=== PATIENT | male | born 1945 | race Caucasian/White ===

== ENCOUNTER → 2017-05-15 | Day surgery (SDC) | payer MEDICARE ==
[~2017-05-15] VITALS: Ht 172.7 cm; Wt 83.9 kg
[~2017-05-15] MED LIST: 0.9% Sodium Chloride 1,000 ML IV PRN; LISI10TA PO; NITR0.4T SL; OXYB5TAB10 PO; PRAV20TA2 PO; Sodium Chloride LOK Flush 10 mL Syringe IV PRN; TURM500C3 PO; fentaNYL-PF 50 mCg/mL 2 mL Inj IVPUSH PRN
[2017-05-15 10:48] VITALS: BP 175/105; PULSE 67; RESP 12; O2SAT 98
--- NOTE | 2017-05-15 12:00 | PCM.ENDCOL ---
Colonoscopy Date of Service: May 15, 2017 Physician Meliton Draper MD Pre Procedure Diagnosis: Screening Post Procedure Dx & Findings: Polyp hemorrhoids diverticuli Procedure Colonoscopy PROCEDURE IN DETAIL: Prep adequate Withdrawal time 9 minutes After unremarkable rectal examination the Olympus video colonoscope was inserted patient's anal canal and was advanced to cecum. Landmarks were identified including the ileocecal valve and appendiceal orifice. Scope was withdrawn systematically. Visualized colonic mucosa showed healthy shiny mucosa with normal healthy-appearing vasculature. In the ileocecal valve, there was a 1 mm polyp which was removed completely using cold forceps. In the descending colon, there was a 3 mm polyp which was removed completely using cold snare. There was also a 1 mm polyp which was removed completely using cold forceps. Patient had many diverticula in the sigmoid colon. Small to large. Patient also has isolated onces all the way into the ascending colon. In the rectum retroflexion was done which showed hemorrhoids. Anal canal was inspected carefully on the way out and hemorrhoids noted. Impression Polyps 3 status post complete removal Diverticuli Hemorrhoids Recommendation Repeat colonoscopy 3 years. Diverticular diet Presedation Assessment Risks and Benefits Informed consent was obtained from the patient after all risks and benefits including but not limited to drug reaction, infection, pain, bleeding, perforation, as well as alternatives were discussed. Patient monitoring Continuous pulse oximetry, cardiac monitoring, blood pressure monitoring, IV access, and oxygen at 2L per nasal cannula. Periprocedural Fentanyl: Fentanyl 100mcg Incrementally Midazolam: Midazolam 5mg Incrementally Complications There were no periprocedural complications identified. Post Procedure Plan Post Procedure Recommendations 1. Restrict activities today. 2. Resume normal activities in the morning. 3. Resume medications. 4. Patient informed of normal post procedure side effects as bloating, drowsiness, blood streaking in the stool. 5. average risk CRCS. If colon polyps come back as: -Hyperplastic- can repeat colonoscopy in 10 years -Tubular adenoma- repeat colonoscopy in 5 years -Tubulovillous/villous adenoma- repeat colonoscopy in 3 years -If any dysplasia- return to clinic as soon as possible 6. Please don't hesitate to call me with any questions. Meliton Draper MD May 15, 2017 12:00
[2017-05-15 12:03] VITALS: BP 159/79; PULSE 62; RESP 12; O2SAT 95
[2017-05-15 12:23] VITALS: BP 120/69; PULSE 58; RESP 14; O2SAT 96
--- NOTE | 2017-05-17 18:19 | PATH ---
SURGICAL PATHOLOGY Attending Physician:Meliton Draper M.D. CASE STATUS: Signed Out PATIENT NAME: GRISELDA PHILLIPS PID: [id number] : 1945 DATE COLLECTED:05/15/2017 19:33 SPECIMEN: 1: Colon, Polyp 2: Colon, Polyp CLINICAL HISTORY: 1). ILEOCECAL VALVE POLYP X 1 2). DESCENDING COLON POLYP X 2 FINAL DIAGNOSIS: 1. Ileocecal Valve, Polyp x1, Biopsy: Tubular adenoma. 2. Descending Colon, Polyps x2, Biopsies: Tubular adenoma in 4 of 6 fragments. ICD10: D12.0 D12.4 GROSS DESCRIPTION: The specimen is received in two formalin filled containers labeled with the patient's name. 1). The specimen is labeled "ileocecal valve polyp" and consists of a 0.2 x 0.2 x 0.2 CM portion of tissue which is entirely submitted in cassette 1A. 2). The specimen is labeled "descending colon polyp and "and consists of 5 portions of tissue which aggregate to zero 3 x 0.3 x 0.2 CM. The specimen is entirely submitted in cassette 2A. 05/15/2017DC ICD-9 CODES: CPT CODES: 1: 78988 2: 47628 Electronically Signed Out Carol Ambrose MD [facility] [address], [place] [address] Technical component performed at [facility], [facility] [address], [place], [address]
== END | disposition home or self-care (01) ==
LOC: END 07:45
PROVIDERS: ATTEND Internal Medicine
DX: Z12.11 Encounter for screening for malignant neoplasm of colon (principal); D12.0 Benign neoplasm of cecum; D12.4 Benign neoplasm of descending colon; K57.30 Diverticulosis of large intestine without perforation or abscess without bleeding; K64.8 Other hemorrhoids; Z83.71 Family history of colonic polyps; I25.10 Atherosclerotic heart disease of native coronary artery without angina pectoris; I25.2 Old myocardial infarction; Z95.5 Presence of coronary angioplasty implant and graft; K21.9 Gastro-esophageal reflux disease without esophagitis; I10 Essential (primary) hypertension; E78.5 Hyperlipidemia, unspecified
CPT/HCPCS: 45380; 45385; 99153; G0500; J2250; J3010; J7030